=== PATIENT | female | born 1955 | race Caucasian/White ===

== ENCOUNTER → 2016-06-24 | Outpatient (CLI) | payer BC | END | disposition home or self-care (01) | LOC: HKI 08:57 | PROVIDERS: ATTEND Orthopaedic Surgery | DX: M17.12 Unilateral primary osteoarthritis, left knee (principal); M25.562 Pain in left knee; Z96.651 Presence of right artificial knee joint | CPT/HCPCS: 20610; G0463; J1030 ==

== ENCOUNTER → 2016-10-02 | Outpatient (CLI) | payer BC | END | disposition home or self-care (01) | LOC: HKI 08:47 | PROVIDERS: ATTEND Orthopaedic Surgery | DX: M17.12 Unilateral primary osteoarthritis, left knee (principal); Z96.651 Presence of right artificial knee joint | CPT/HCPCS: G0463 ==

== ENCOUNTER → 2016-11-06 | Outpatient (CLI) | payer BC | END | disposition home or self-care (01) | LOC: HKI 09:55 | PROVIDERS: ATTEND Orthopaedic Surgery | DX: S83.232A Complex tear of medial meniscus, current injury, left knee, initial encounter (principal); S83.282A Other tear of lateral meniscus, current injury, left knee, initial encounter; M25.562 Pain in left knee | CPT/HCPCS: G0463 ==

== ENCOUNTER → 2016-11-18 | Outpatient (CLI) | payer BC ==
--- NOTE | 2016-11-18 12:06 | HKNOTE ---
DATE OF SERVICE: 11/18/2016 INTERVAL HISTORY: The patient presents today for her 1st postoperative evaluation on her left knee. She is now 7 days status post left knee arthroscopy and partial medial and lateral meniscectomy. She is doing well overall. She is ambulating without any assistive devices. She denies any fevers or chills. She is taking pain medication occasionally, as well as Mobic. She presents today for evaluation. PHYSICAL EXAMINATION: On exam today, she is alert, oriented x4, in no acute distress. She walks with a slightly antalgic gait. She has a trace effusion. Her portal incisions are clean, dry, and intact. There is no erythema, warmth, pus, or drainage noted. Range of motion is 0-110 degrees. Varus and valgus forces are stable. Homans sign is negative. Compartments are soft. She is neurovascularly intact distally. ASSESSMENT: Seven days status post left knee arthroscopy and partial medial and lateral meniscectomy. PLAN: The sutures were removed today, and Steri-Strips were applied. She is to begin outpatient physical therapy focusing on strength and range of motion. She is to continue taking the meloxicam until the prescription is complete, as well as pain medicine as needed. We will see her back in 4 weeks for repeat evaluation. The patient is to call the office in the meantime ,if she has any concerns. Dictated By: Jacob Rosa PA-C cc: Dr Roel Hearn MD /piyush/amber /Document#: [id number] CARLY[place]
== END | disposition home or self-care (01) ==
LOC: HKI 10:00
PROVIDERS: ATTEND Orthopaedic Surgery
DX: Z47.1 Aftercare following joint replacement surgery (principal); Z96.652 Presence of left artificial knee joint; M25.462 Effusion, left knee